=== PATIENT | female | born 1970 | race Caucasian/White ===

== ENCOUNTER → 2018-10-23 | Outpatient (CLI) | payer BC ==
--- NOTE | 2018-10-24 07:15 | NM ---
EXAMINATION TYPE: NM hepatobiliary w CCK DATE OF EXAM: 10/23/2018 COMPARISON: NONE HISTORY: Other specified diseases of the gallbladder. Abdominal pain, decreased appetite, reflux, becki sea, and alcohol usage. TECHNIQUE: After the intravenous administration of 4.28 mCi Tc 99m Mebrofenin hepatobiliary scintigra phy is performed. Immediate images post injection. FINDINGS: There is satisfactory initial accumulation of tracer by the liver. The gallbladder is visualized wit hin 8 minutes. The small bowel activity is noted within 40 minutes. At one hour CCK was administere d, patient was injected with 1.2 mcg of Kinevac, and gallbladder ejection fraction is calculated at 9 9 %, markedly elevated. Therefore there is no scintigraphic evidence of cystic or common bile duct o bstruction to suggest acute cholecystitis or gallbladder dyskinesia. IMPRESSION: 1. Markedly elevated gallbladder ejection fraction compatible with biliary hyperkinesia with ejection fraction of 99%. 2. No scintigraphic evidence of chronic nor acute cholecystitis.
== END | disposition home or self-care (01) ==
LOC: RADNMMAIN 15:05
PROVIDERS: ATTEND Surgery
DX: K82.8 Other specified diseases of gallbladder (principal)
CPT/HCPCS: 78227; A9537; J2805

== ENCOUNTER → 2018-10-30 | Outpatient (CLI) | payer BC ==
--- NOTE | 2018-10-31 08:48 | CT ---
EXAMINATION TYPE: CT abdomen pelvis w con DATE OF EXAM: 10/30/2018 COMPARISON: None INDICATION: ABDOMINAL PAIN X2 MONTHS DLP: 433.7 mGycm, Automated exposure control for dose reduction was used. CONTRAST: 100 mL of Isovue 300. Study performed with Oral Contrast TECHNIQUE: Axial images were obtained from above the diaphragm to the pubic rami in the axial plane a t 5 mm thick sections. Reconstructed images are reviewed on the computer in the coronal plane. FINDINGS: Limited CT sections are obtained the lung bases. The lung bases are clear. CT ABDOMEN: Liver: There is an ill-defined hypodensity within the mid right lobe liver measuring approximately 0. 5 since this could be a cyst among other etiologies, but is too small to classify. Consider follow-up ultrasound. Spleen: Normal Pancreas: Normal Adrenal glands: The adrenal glands are normal. Gallbladder: Normal Kidneys: No masses are evident. No hydronephrosis is present. No cysts are present. Delayed images were obtained through the kidneys, which remain unremarkable. Aorta: Normal Inferior vena cava: Normal. CT PELVIS: Loops of bowel distended with oral contrast within the upper abdomen are normal. The descending colon appears within normal limits with a few scattered diverticuli. There are scattered diverticuli withi n the sigmoid colon. The proximal sigmoid colon is diffusely thickened with some mild inflammatory ch heath adjacent. Contrast passes through this region. Findings are suggestive for mild to moderate dive rticulitis. No abscess formation is evident. No free air is evident. There are loops of bowel which a re incompletely distended or lack oral contrast limiting their evaluation. Appendix: Normal as visualized. Urinary bladder: Decompressed and cannot be well evaluated Genitourinary structures: Uterus is unremarkable. Adnexal regions are clear. No free fluid is within the pelvis. Osseous structures: No suspicious lytic or sclerotic lesions. IMPRESSIONS: 1. Findings suggestive for mild to moderate diverticulitis proximal and mid sigmoid colon. Follow-up is recommended. Evaluation for underlying neoplasm is recommended. 2. Small hypodensity within the right lobe liver is indeterminant on CT examination. Consider ultraso und abdomen with attention of the liver for additional evaluation. A [place] level critical message alert has been initiated for Riki Rangel MD via the [employer] Critical Results System on 10/31/2018 8:46 AM. This message alert has been sent to Riki Rangel MD via the preferences provided by the clinician for the receipt of Radiology Critical Findings. [facility] [place] [id number].
== END | disposition home or self-care (01) ==
LOC: RADCTMAIN 15:00
PROVIDERS: ATTEND Surgery
DX: K52.9 Noninfective gastroenteritis and colitis, unspecified (principal)
CPT/HCPCS: 74177; Q9967

== ENCOUNTER 2018-11-20 09:05 | Day surgery (SDC) | payer BC ==
[2018-11-16 12:03] VITALS: BMI 23.0
[~2018-11-20 09:05] MED LIST: DEXAMETHASONE SOD PHOSPHATE 10 MG/ML 1 ML VIAL IV ONE; HEPARIN SODIUM,PORCINE 5,000 UNIT/ML 1 ML VIAL SQ ONE; LACTATED RINGERS 1,000 ML IV SCH; LIDOCAINE 1% 20 ML VIAL (10MG/ML) FOR IV START INTRADERMA PRN; MIDAZOLAM 2 MG/2 ML VIAL IV PRN; fentaNYL (PF) 50 MCG/ML 2 ML AMP IV PRN
[2018-11-20] MEDS ORDERED: ONDANSETRON 4 MG/2 ML VIAL IVP ONE (09:35)
--- NOTE | 2018-11-20 09:44 | P.GSHP ---
History of Present Illness H&P Date: 11/20/18 Chief Complaint: Right upper quadrant, epigastric pain This a 40-year-old female who presents today for laparoscopically stenting. Patient recent HIDA scan showed abnormal ejection fraction consistent with chronic cholecystitis. Past Medical History Additional Past Medical History / Comment(s): diverticulitis History of Any Multi-Drug Resistant Organisms: None Reported Past Surgical History: Breast Surgery, Section, Hysterectomy Additional Past Surgical History / Comment(s): breast augmentation, lipoma removed from back of head Past Anesthesia/Blood Transfusion Reactions: Postoperative Nausea & Vomiting (PONV) Smoking Status: Current every day smoker - Past Family History Mother Family Medical History: Diabetes Mellitus, Deep Vein Thrombosis (DVT) Medications and Allergies Home Medications Medication Instructions Recorded Confirmed Type No Known Home Medications 11/16/18 11/20/18 History Allergies Allergy/AdvReac Type Severity Reaction Status Date / Time No Known Allergies Allergy Verified 11/20/18 09:24 Surgical - Exam Vital Signs Temp Pulse Resp BP Pulse Ox 98.0 F 82 16 134/76 96 11/20/18 09:23 11/20/18 09:23 11/20/18 09:23 11/20/18 09:23 11/20/18 09:23 - General well developed, well nourished, no distress - Eyes PERRL - ENT normal pinna - Neck no masses - Respiratory normal expansion - Cardiovascular Rhythm: regular - Abdomen Abdomen: soft, non tender Assessment and Plan Plan: Chronic cholecystitis. We'll perform laparoscopic cholecystectomy.
[2018-11-20] MEDS ORDERED: SUCCINYLCHOLINE CHLORIDE 100 MG/5 ML SYR IV ONE (10:01)
[2018-11-20] MEDS ORDERED: MIDAZOLAM 2 MG/2 ML VIAL ONE (10:01)
[2018-11-20] MEDS ORDERED: NEOSTIGMINE 1 MG/ML 10 ML VIAL ONE (10:01)
[2018-11-20] MEDS ORDERED: PROPOFOL 10 MG/ML 20 ML VIAL IV ONE (10:01)
[2018-11-20] MEDS ORDERED: GLYCOPYRROLATE 0.2 MG/ML 2 ML VIAL ONE (10:01)
[2018-11-20] MEDS ORDERED: fentaNYL (PF) 50 MCG/ML 2 ML AMP ONE (10:01)
[2018-11-20] MEDS ORDERED: ROCURONIUM BROMIDE 10 MG/ML 10 ML VIAL IV ONE (10:01)
[2018-11-20] MEDS ORDERED: KETOROLAC 30 MG/ML 1 ML VIAL ONE (10:01)
[2018-11-20] MEDS ORDERED: LIDOCAINE 1% INJ 10MG/ML (20 ML MDV) ONE (10:01)
[2018-11-20] MEDS ORDERED: LIDOCAINE 1%-EPI 1:100,000 20 ML VIAL SQ ONE (10:04)
--- NOTE | 2018-11-20 10:35 | P.OP ---
Date of Procedure: 11/20/18 Preoperative Diagnosis: Cholecystitis Postoperative Diagnosis: Cholecystitis Procedure(s) Performed: Laparoscopic cholecystectomy Anesthesia: GERALD Surgeon: Riki Rangel Estimated Blood Loss (ml): 5 Pathology: other (Gallbladder) Condition: stable Disposition: PACU Description of Procedure: The patient was placed on the operating table. The patient received a general endotracheal tube anesthesia. The patients abdomen was prepped and draped in the usual sterile fashion. Through an infraumbilical stab incision, the fascia of the anterior abdominal wall was grasped with a pair of Kochers and then the Veress needle was placed in the peritoneal cavity. Position of the Veress needle was confirmed with positive drop test. The abdomen was then insufflated. After adequate insufflation, the 10 mm trocar was placed in the peritoneal cavity. Following this the laparoscope was placed in the peritoneal cavity. The patient was placed in the head-up, right side up position and then a 5 mm trocar was placed in the right lateral and right subcostal position under direct visualization. A 8 mm trocar was placed in the epigastric position. The gallbladder was grasped in the fundus and infundibulum. Traction on the gallbladder was placed in the lateral and the cephalad positions. The triangle of Calot was visualized.. The cystic duct was bluntly dissected until the union of the cystic duct and common bile duct was seen. A critical view of safety was achieved. The cystic duct was then divided and sealed with the Harmonic scissors. A PDS Endoloop was then placed throughout the cystic duct stump. The cystic artery divided and sealed with the Harmonic scissors. The gallbladder was then removed from the liver bed using Harmonic scissors. The gallbladder was then extracted through the epigastric port site. Operative field was checked for any bleeding spots and Harmonic scissors was used to coagulate the liver bed. The abdomen was irrigated. The trocars were removed. The skin was closed using interrupted 3-0 Vicryl suture. Dermabond dressing were applied. The patient tolerated the procedure well.
[2018-11-20 10:45] VITALS: TEMP 97
[2018-11-20] MEDS: HYDROmorphone 1 MG/ML 1 ML SYRINGE IVP ONE ×2 (10:54→11:01)
[2018-11-20] MEDS ORDERED: LACTATED RINGERS 1,000 ML IV ONE (10:55)
[2018-11-20 11:42] VITALS: RESP 18
[2018-11-20 12:07] VITALS: BP 121/72; PULSE 83
== END 2018-11-20 12:20 | disposition home or self-care (01) ==
LOC: OR 09:05
PROVIDERS: ATTEND Surgery
DX: K81.1 Chronic cholecystitis (principal); F17.200 Nicotine dependence, unspecified, uncomplicated; Z83.3 Family history of diabetes mellitus
CPT/HCPCS: 88304; 47562; J2250; J1644; J1100; J2710; J0690; J2405; J2001; J3010; J1885; J1170; J0330; J2704

== ENCOUNTER 2018-12-20 09:46 | Day surgery (SDC) | payer BC ==
[2018-12-18 14:27] VITALS: BMI 22.5
[~2018-12-20 09:46] MED LIST changes: -DEXAMETHASONE SOD PHOSPHATE 10 MG/ML 1 ML VIAL IV ONE; -HEPARIN SODIUM,PORCINE 5,000 UNIT/ML 1 ML VIAL SQ ONE; -MIDAZOLAM 2 MG/2 ML VIAL IV PRN; -fentaNYL (PF) 50 MCG/ML 2 ML AMP IV PRN
[2018-12-20 10:29] VITALS: TEMP 98.5
[2018-12-20] MEDS ORDERED: PROPOFOL 10 MG/ML 20 ML VIAL IV ONE (10:50)
--- NOTE | 2018-12-20 11:07 | P.OP ---
Date of Procedure: 12/20/18 Preoperative Diagnosis: Diverticulitis Postoperative Diagnosis: External hemorrhoids. Diverticulosis Procedure(s) Performed: Colonoscopy Anesthesia: GERALD Surgeon: Riki Rangel Pathology: other (Sigmoid colon) Condition: stable Disposition: PACU Description of Procedure: The patient's placed on the endoscopy table in the lateral position. She received IV sedation. Digital rectal exam was performed which revealed external hemorrhoids. The flexible colonoscope was then placed patient anus and passed throughout the entire colon. The ileocecal valve was visualized. The cecum appeared normal. The ascending and transverse colon and a few scattered diverticula. In the descending colon a few diverticula received.; Was extensive diverticular changes there was evidence of some inflammatory changes mucosa. This was biopsied. With the cold forcep. The scope was then brought back the rectum this appeared normal. Scope withdrawn for patient.
[2018-12-20 11:35] VITALS: BP 128/87; PULSE 66; RESP 16
== END 2018-12-20 11:41 | disposition home or self-care (01) ==
LOC: ORWHC2ENDO 09:46
PROVIDERS: ATTEND Surgery
DX: K57.30 Diverticulosis of large intestine without perforation or abscess without bleeding (principal); K64.4 Residual hemorrhoidal skin tags; F17.210 Nicotine dependence, cigarettes, uncomplicated; K21.9 Gastro-esophageal reflux disease without esophagitis
CPT/HCPCS: 88305; 45378; J2704

== ENCOUNTER → 2019-02-07 | Outpatient (CLI) | payer BC ==
[2019-02-07 18:23] LABS: HCT 37.7 % (34.0-46.0); MCHC 34.5 g/dL (31.0-37.0); MCV 98.5 fL (80.0-100.0); Mean Platelet Volume 7.9; Platelet Count 231 k/uL (150-450); RBC 3.82 m/uL (3.80-5.40); RDW 12.3 % (11.5-15.5); WBC 8.8 k/uL (3.8-10.6)
[2019-02-07 18:38] LABS: Potassium 4.3 mmol/L (3.5-5.1)
== END | disposition home or self-care (01) ==
LOC: LABPAT 17:19
PROVIDERS: ATTEND Surgery
DX: Z01.812 Encounter for preprocedural laboratory examination (principal); K57.32 Diverticulitis of large intestine without perforation or abscess without bleeding
CPT/HCPCS: 80051; 85027

== ENCOUNTER 2019-02-09 07:40 | Inpatient (IN) | payer BC ==
[~2019-02-09 07:40] MED LIST changes: +DEXAMETHASONE SOD PHOSPHATE 10 MG/ML 1 ML VIAL IV ONE; +HEPARIN SODIUM,PORCINE 5,000 UNIT/ML 1 ML VIAL SQ ONE; +HYDROmorphone 0.5 MG/0.5 ML SYRINGE IVP PRN; -LACTATED RINGERS 1,000 ML IV SCH; +MIDAZOLAM 2 MG/2 ML VIAL IV PRN; +ONDANSETRON 4 MG/2 ML VIAL IVP ONE; +SCOPOLAMINE 1.5MG/72HR PATCH TRANSDERM ONE; +metroNIDAZOLE-NS PMX 500 MG in SALINE 1 100ML.BAG IVPB ONE
[2019-02-09] MEDS: LACTATED RINGERS 1,000 ML IV SCH (10:36)
[2019-02-09] MEDS ORDERED: MELOXICAM 7.5 MG TAB PO ONE (10:37)
[2019-02-09] MEDS ORDERED: ALVIMOPAN 12 MG CAPSULE PO ONE (10:37)
--- NOTE | 2019-02-09 11:00 | P.GSHP ---
History of Present Illness H&P Date: 02/09/19 Chief Complaint: Diverticulitis This a 40-year-old female with history of diverticula is. Patient presents today for low anterior resection. Patient aware the risks of surgery including colostomy, anastomotic leak, bleeding. Past Medical History Past Medical History: GERD/Reflux Additional Past Medical History / Comment(s): diverticulitis, small abdominal hernia, hx shingles History of Any Multi-Drug Resistant Organisms: None Reported Past Surgical History: Breast Surgery, Section, Cholecystectomy, Hysterectomy, Tonsillectomy Additional Past Surgical History / Comment(s): breast augmentation, lipoma removed from back of head, exploratory laparotomy Past Anesthesia/Blood Transfusion Reactions: Postoperative Nausea & Vomiting (PONV) Smoking Status: Current every day smoker - Past Family History Mother Family Medical History: Deep Vein Thrombosis (DVT) Medications and Allergies Home Medications Medication Instructions Recorded Confirmed Type No Known Home Medications 02/06/19 02/09/19 History Allergies Allergy/AdvReac Type Severity Reaction Status Date / Time No Known Allergies Allergy Verified 02/09/19 10:31 Surgical - Exam Vital Signs Temp Pulse Resp BP Pulse Ox 98.1 F 98 16 140/75 100 02/09/19 10:24 02/09/19 10:24 02/09/19 10:24 02/09/19 10:24 02/09/19 10:24 - General well developed, well nourished, no distress - Eyes PERRL - ENT normal pinna - Neck no masses - Respiratory normal expansion - Cardiovascular Rhythm: regular - Abdomen Abdomen: soft, non tender Assessment and Plan Assessment: History of diverticula is. Patient will undergo low anterior section.
[2019-02-09] MEDS ORDERED: MIDAZOLAM 2 MG/2 ML VIAL IVP ONE (11:05)
[2019-02-09] MEDS ORDERED: GLYCOPYRROLATE 0.2 MG/ML 2 ML VIAL ONE (11:10)
[2019-02-09] MEDS ORDERED: MIDAZOLAM 2 MG/2 ML VIAL ONE (11:10)
[2019-02-09] MEDS ORDERED: NEOSTIGMINE 1 MG/ML 10 ML VIAL ONE (11:10)
[2019-02-09] MEDS ORDERED: fentaNYL (PF) 50 MCG/ML 2 ML AMP ONE (11:10)
[2019-02-09] MEDS ORDERED: ESMOLOL 100 MG/10 ML VIAL ONE (11:10)
[2019-02-09] MEDS ORDERED: PROPOFOL 10 MG/ML 20 ML VIAL IV ONE (11:10)
[2019-02-09] MEDS ORDERED: HYDROmorphone (PF) 1 MG/ML ONE (11:10)
[2019-02-09] MEDS ORDERED: SUCCINYLCHOLINE CHLORIDE 100 MG/5 ML SYR IV ONE (11:10)
[2019-02-09] MEDS ORDERED: ROCURONIUM BROMIDE 10 MG/ML 10 ML VIAL IV ONE (11:10)
[2019-02-09] MEDS ORDERED: LIDOCAINE 1% INJ 10MG/ML (20 ML MDV) ONE (11:10)
[2019-02-09] MEDS ORDERED: NALOXONE 0.4 MG/ML 1 ML VIAL IV PRN (11:44)
[2019-02-09] MEDS ORDERED: ONDANSETRON 4 MG/2 ML VIAL IVP PRN (12:57)
[2019-02-09] MEDS ORDERED: BENZOCAINE/MENTHOL LOZENG 1 EACH LOZENGE MUCOUS MEM PRN (12:57)
[2019-02-09] MEDS ORDERED: KETOROLAC 30 MG/ML 1 ML VIAL IVP PRN (12:57)
[2019-02-09] MEDS ORDERED: METOCLOPRAMIDE 5 MG/ML 2 ML VIAL IVP PRN (12:57)
[2019-02-09] MEDS ORDERED: LACTATED RINGERS 1,000 ML IV ONE (13:06)
[2019-02-09] MEDS: ROPIVACAINE 250 MG, HYDROMORPHONE (PF) 5 MG in SODIUM CHLORIDE 0.9% 200 ML EPIDURAL PRN ×2 (13:15→14:13)
[2019-02-09] MEDS: D5-0.45% NACL WITH KCL 20MEQ/L 1,000 ML IV SCH (17:03)
[2019-02-09] MEDS: HEPARIN SODIUM,PORCINE 5,000 UNIT/ML 1 ML VIAL SQ SCH (17:03)
[2019-02-09] MEDS: ALVIMOPAN 12 MG CAPSULE PO SCH (20:51)
[2019-02-09] MEDS: FAMOTIDINE 20 MG/2 ML VIAL IV SCH (20:51)
[2019-02-09] MEDS: diphenhydrAMINE 50 MG/ML 1 ML VIAL IVP PRN (20:52)
[2019-02-10] MEDS: HEPARIN SODIUM,PORCINE 5,000 UNIT/ML 1 ML VIAL SQ SCH ×4 (00:17→22:20)
[2019-02-10] MEDS: D5-0.45% NACL WITH KCL 20MEQ/L 1,000 ML IV SCH ×4 (00:17→22:57)
[2019-02-10 07:46] LABS: Basophils # (A) 0.1 k/uL (0-0.2); Basophils % (A) 1 %; Eosinophils % (A) 0 %; HCT 35.7 % (34.0-46.0); HGB 11.6 gm/dL (11.4-16.0); Lymphocytes % (A) 7 %; MCH 33.1 pg (25.0-35.0); MCHC 32.6 g/dL (31.0-37.0); MCV 101.6 fL (80.0-100.0); Mean Platelet Volume 8.5; Monocytes # (A) 0.7 k/uL (0-1.0); Monocytes % (A) 5 %; Neutrophils # (A) 12.2 k/uL (1.3-7.7); Neutrophils % (A) 87 %; Platelet Count 225 k/uL (150-450); RBC 3.51 m/uL (3.80-5.40); RDW 12.4 % (11.5-15.5); WBC 14.1 k/uL (3.8-10.6)
[2019-02-10 07:58] LABS: African American GFR (CKD) >90 (>60 ml/min/1.73 sqM); Anion Gap 9 mmol/L; Blood Urea Nitrogen 5 mg/dL (7-17); Calcium 9.1 mg/dL (8.4-10.2); Carbon Dioxide 25 mmol/L (22-30); Chloride 104 mmol/L (98-107); Glucose 136 mg/dL (74-99); Non-African American GFR(CKD) >90 (>60 ml/min/1.73 sqM); Potassium 4.1 mmol/L (3.5-5.1); Sodium 138 mmol/L (137-145)
[2019-02-10] MEDS: LACTATED RINGERS 1,000 ML IV SCH (08:45)
[2019-02-10] MEDS: FAMOTIDINE 20 MG/2 ML VIAL IV SCH ×2 (08:49→22:20)
[2019-02-10] MEDS: ALVIMOPAN 12 MG CAPSULE PO SCH ×2 (08:49→22:20)
--- NOTE | 2019-02-10 10:40 | P.PN ---
Progress Note - Text Progress Note Date: 02/10/19 The patient's postoperative day 1 from low anterior resection for diverticulitis. She is doing quite well. She's had minimal pain. She actually has a little numbness in her left leg. On exam her vital signs are stable. Her abdomen soft. Incision site is clean dry intact Status post low anterior resection. Patient will remain on clear liquid diet. We will encourage ambulation and spirometer
[2019-02-10 12:32] VITALS: BMI 22.6
--- NOTE | 2019-02-10 16:21 | P.CONS ---
History of Present Illness - Reason for Consult Consult date: 02/10/19 Medical management - History of Present Illness This is a 48-year-old female patient of Dr. Flores admitted under the care of Dr. Rangel for low anterior resection. Patient has history of gastroesophageal reflux disease, diverticulitis. Patient is seen on postop day #1. Abdominal pain is currently controlled. She is on clear liquid diet and tolerating. Man catheter in place. She has been afebrile, blood pressure 149/88, heart rate 89, pulse ox 87% on room air. WBC 14.1, hemoglobin 11.6, platelet count 225. Electrolytes within normal limits, creatinine 0.56. Blood sugar 136. Patient denies history of diabetes. Review of Systems Constitutional: Denies chills, Denies fatigue, Denies fever Eyes: denies blurred vision, denies pain Ears, nose, mouth and throat: Denies headache, Denies sore throat Cardiovascular: Denies chest pain, Denies shortness of breath Respiratory: Denies cough Gastrointestinal: Reports abdominal pain, Reports constipation, Reports loss of appetite, Denies diarrhea, Denies nausea, Denies vomiting Genitourinary: Denies dysuria, Denies hematuria Musculoskeletal: Denies frequent falls, Denies gait dysfunction, Denies myalgias Integumentary: Denies pruritus, Denies rash Neurological: Denies numbness, Denies weakness Psychiatric: Denies anxiety, Denies depression Endocrine: Denies fatigue, Denies weight change Past Medical History Past Medical History: GERD/Reflux Additional Past Medical History / Comment(s): diverticulitis, small abdominal hernia, hx shingles History of Any Multi-Drug Resistant Organisms: None Reported Past Surgical History: Breast Surgery, Section, Cholecystectomy, Hysterectomy, Tonsillectomy Additional Past Surgical History / Comment(s): breast augmentation, lipoma removed from back of head, exploratory laparotomy Past Anesthesia/Blood Transfusion Reactions: Postoperative Nausea & Vomiting (PONV) Past Psychological History: Anxiety Smoking Status: Current every day smoker Past Alcohol Use History: Daily Additional Past Alcohol Use History / Comment(s): STARTED SMOKING AT AGE 15 SMOKES 1/2 PPD , up to 3 drinks daily Past Drug Use History: None Reported - Past Family History Mother Family Medical History: Diabetes Mellitus, Deep Vein Thrombosis (DVT) Additional Family Medical History / Comment(s): Mother is alive at age 72 with history of diabetes. Father Additional Family Medical History / Comment(s): Father at age 46 from cirrhosis of the liver. Patient has 1 sister with no major medical problems and one daughter with no major medical problems. Medications and Allergies Home Medications Medication Instructions Recorded Confirmed Type No Known Home Medications 02/06/19 02/09/19 History Allergies Allergy/AdvReac Type Severity Reaction Status Date / Time No Known Allergies Allergy Verified 02/09/19 10:31 Physical Exam Vitals: Vital Signs Temp Pulse Pulse Resp BP Pulse Ox 02/10/19 07:00 98.3 F 79 12 107/52 96 02/10/19 02:20 98.2 F 86 17 106/63 02/09/19 19:59 98.1 F 69 18 116/70 97 02/09/19 17:53 93 114/69 02/09/19 17:04 96 02/09/19 16:58 99 103/61 95 02/09/19 16:43 96 121/74 93 L 02/09/19 16:28 80 126/75 94 L 02/09/19 16:13 102 H 122/76 95 02/09/19 15:58 89 106/69 02/09/19 15:43 88 120/78 98 02/09/19 15:28 89 109/68 92 L 02/09/19 15:13 88 126/87 97 02/09/19 14:58 78 125/76 99 02/09/19 14:44 88 131/77 98 02/09/19 14:29 98.7 F 88 16 106/72 99 02/09/19 14:01 81 16 110/67 99 02/09/19 13:46 73 16 118/63 99 02/09/19 13:31 81 16 121/66 100 02/09/19 13:15 97.4 F L 89 16 127/80 98 02/09/19 11:15 99 14 114/75 99 Intake and Output 02/09/19 02/10/19 02/10/19 22:59 06:59 14:59 Intake Total 258.4 1250 Output Total 300 2050 Balance -41.6 -800 Intake: Intake, IV Titration 258.4 1250 Amount D5-0.45% NaCl with KCl 250 1250 20Meq/l 1,000 ml @ 125 mls/hr IV .Q8H [facility] Rx#: [id number] Ropivacaine 250 mg 8.4 Hydromorphone (Pf) 5 mg In Sodium Chloride 0.9% 200 ml @ Per Protocol EPIDURAL .Q0M PRN Rx#: [id number] Output: Urine 200 2050 Uretheral (Man) 200 600 Emesis 100 Other: Voiding Method Indwelling Catheter Indwelling Catheter # Bowel Movements 1 Gen: This is a 48-year-old female. Patient is resting in bed and appears comfortable and in no acute distress. HEENT: Head is atraumatic, normocephalic. Pupils equal, round. Sclerae is anicteric. NECK: Supple. No JVD. No lymphadenopathy. No thyromegaly. LUNGS: Clear to auscultation. No wheezes or rhonchi. No intercostal retractions. HEART: Regular rate and rhythm. No murmur. ABDOMEN: Soft. Bowel sounds are present. No masses. Generalized mild lower tenderness. EXTREMITIES: No pedal edema. No calf tenderness. NEUROLOGICAL: Patient is awake, alert and oriented x3. Cranial nerves 2 through 12 are grossly intact. Results CBC & Chem 7: 02/10/19 06:45 02/10/19 06:45 Labs: Abnormal Lab Results - Last 24 Hours (Table) 02/10/19 02/10/19 Range/Units 06:45 06:45 WBC 14.1 H (3.8-10.6) k/uL RBC 3.51 L (3.80-5.40) m/uL MCV 101.6 H (80.0-100.0) fL Neutrophils # 12.2 H (1.3-7.7) k/uL BUN 5 L (7-17) mg/dL Glucose 136 H (74-99) mg/dL Assessment and Plan Plan: 1. Acute diverticulitis status post low anterior resection, postop day #1. Patient is currently on clear liquid diet. Continue current pain management. Epidural in place. Patient is on Flagyl. Continue Entereg. 2. GI prophylaxis and gastroesophageal reflux disease, Pepcid IV. 3. Tobacco use and dependence. Patient declines nicotine patch. 4. Daily alcohol use. Patient history of seizure activity, DTs with withdrawal. 5. DVT prophylaxis. SCDs and MINDA hose. Discharge plan: home Impression and plan of care have been directed as dictated by the signing physician. Melvi Campbell nurse practitioner acting as scribe for signing physician.
[2019-02-10] MEDS: ROPIVACAINE 250 MG, HYDROMORPHONE (PF) 5 MG in SODIUM CHLORIDE 0.9% 200 ML EPIDURAL PRN (22:56)
[2019-02-10] MEDS: diphenhydrAMINE 50 MG/ML 1 ML VIAL IVP PRN (23:02)
[2019-02-11] MEDS: ALVIMOPAN 12 MG CAPSULE PO SCH ×2 (08:18→21:16)
[2019-02-11] MEDS: HEPARIN SODIUM,PORCINE 5,000 UNIT/ML 1 ML VIAL SQ SCH ×2 (08:18→15:30)
[2019-02-11] MEDS: FAMOTIDINE 20 MG/2 ML VIAL IV SCH ×2 (08:18→21:16)
[2019-02-11] MEDS: LACTATED RINGERS 1,000 ML IV SCH (08:19)
[2019-02-11] MEDS: D5-0.45% NACL WITH KCL 20MEQ/L 1,000 ML IV SCH ×2 (08:19→13:48)
--- NOTE | 2019-02-11 09:29 | P.PN ---
Progress Note - Text Progress Note Date: 02/11/19 48-year-old female status post low anterior resection postop day #2, epidural catheter day #3. Patient's doing well sitting up in chair. Current rate of 3 ML's an hour. Endorses mild pruritus which has been treated with Benadryl. She denies any numbness or tingling, any motor or sensory deficits. She denies any nausea, vomiting. She tolerating soft diet well. Using incentive spirometry. Patient is currently getting subcu heparin 5000 units 3 times a day. Plan is to continue epidural at current settings.
--- NOTE | 2019-02-11 09:31 | P.PN ---
Progress Note - Text Progress Note Date: 02/10/19 Follow up on 02/10/19 48-year-old female status post low anterior resection postop day #1 epidural catheter day #2. Overall patient is doing well epidurals at a rate of 6 ML's an hour. Denies any motor or sensory deficits. Surgical incision looks clean dry and intact, epidural catheter site is clean dry and intact. Denies any nausea or vomiting. Minimal ambulation. Hemodynamically stable. Plan is to continue epidural at current settings.
--- NOTE | 2019-02-11 10:05 | P.PN ---
Progress Note - Text Progress Note Date: 02/11/19 The patient is resting comfortably in her chair. She's had no significant flatus. On exam her vital signs are stable. Her abdomen soft. Incision site is clean dry intact. Her epidural is in place. Status post low anterior resection for diverticulitis. Patient will have her epidural catheter removed in the a.m. She will remain on clear liquids.
--- NOTE | 2019-02-11 11:49 | P.PN ---
Subjective Progress Note Date: 02/11/19 This is a 48-year-old female patient of Dr. Flores admitted under the care of Dr. Rangel for low anterior resection. Patient has history of gastroesophageal reflux disease, diverticulitis. Patient is seen on postop day #1. Abdominal pain is currently controlled. She is on clear liquid diet and tolerating. Man catheter in place. She has been afebrile, blood pressure 149/88, heart rate 89, pulse ox 87% on room air. WBC 14.1, hemoglobin 11.6, platelet count 225. Electrolytes within normal limits, creatinine 0.56. Blood sugar 136. Patient denies history of diabetes. 02/11: Epidural catheter for pain control and Man catheter remain in place which is anticipated these will be removed today. Patient is complaining of a lot of gas. She is on a clear liquid diet and tolerating Review of Systems Constitutional: Denies chills, Denies fatigue, Denies fever Eyes: denies blurred vision, denies pain Ears, nose, mouth and throat: Denies headache, Denies sore throat Cardiovascular: Denies chest pain, Denies shortness of breath Respiratory: Denies cough Gastrointestinal: Reports abdominal discomfort, Reports constipation, Reports loss of appetite, Denies diarrhea, Denies nausea, Denies vomiting Genitourinary: Denies dysuria, Denies hematuria Musculoskeletal: Denies frequent falls, Denies gait dysfunction, Denies myalgias Integumentary: Denies pruritus, Denies rash Neurological: Denies numbness, Denies weakness Psychiatric: Denies anxiety, Denies depression Endocrine: Denies fatigue, Denies weight change Objective - Vital Signs Vital signs: Vital Signs Temp 98.6 F 02/11/19 02:43 Pulse 77 02/11/19 02:43 Resp 16 02/11/19 02:43 BP 124/78 02/11/19 02:43 Pulse Ox 98 02/11/19 02:43 Intake & Output 02/10/19 02/11/19 02/11/19 18:59 06:59 18:59 Intake Total 240 159.333 Output Total 3000 3200 Balance -8620 -3040.667 Weight 57.9 kg Intake: Intake, IV Titration 159.333 Amount Ropivacaine 250 mg 159.333 Hydromorphone (Pf) 5 mg In Sodium Chloride 0.9% 200 ml @ Per Protocol EPIDURAL .Q0M PRN Rx#: [id number] Oral 240 Output: Urine 3000 3100 Emesis 100 Other: Voiding Method Indwelling Catheter Indwelling Catheter - Exam Gen: This is a 48-year-old female. Patient is resting in bed and appears to be in no acute distress. HEENT: Head is atraumatic, normocephalic. Pupils equal, round. Sclerae is anicte benito. NECK: Supple. No JVD. No lymphadenopathy. No thyromegaly. LUNGS: Clear to auscultation. No wheezes or rhonchi. No intercostal retractions. HEART: Regular rate and rhythm. No murmur. ABDOMEN: Soft. Bowel sounds are present. No masses. Generalized mild lower tenderness. EXTREMITIES: No pedal edema. No calf tenderness. NEUROLOGICAL: Patient is awake, alert and oriented x3. Cranial nerves 2 through 12 are grossly intact. - Labs CBC & Chem 7: 02/10/19 06:45 02/10/19 06:45 Labs: Abnormal Lab Results - Last 24 Hours (Table) 02/10/19 02/10/19 Range/Units 06:45 06:45 WBC 14.1 H (3.8-10.6) k/uL RBC 3.51 L (3.80-5.40) m/uL MCV 101.6 H (80.0-100.0) fL Neutrophils # 12.2 H (1.3-7.7) k/uL BUN 5 L (7-17) mg/dL Glucose 136 H (74-99) mg/dL Assessment and Plan Plan: 1. Acute diverticulitis status post low anterior resection, postop day #2. Patient is currently on clear liquid diet. Continue current pain management. Epidural and Man to be removed. Patient is on Flagyl. Continue Entereg. 2. GI prophylaxis and gastroesophageal reflux disease, Pepcid IV. 3. Tobacco use and dependence. Patient declines nicotine patch. 4. Daily alcohol use. Patient history of seizure activity, DTs with withdrawal. 5. DVT prophylaxis. SCDs and MINDA hose. Discharge plan: home Impression and plan of care have been directed as dictated by the signing physician. Melvi Campbell nurse practitioner acting as scribe for signing physi sam.
[2019-02-11] MEDS ORDERED: LORazepam 0.5 MG TAB PO PRN (14:31)
[2019-02-11] MEDS: diphenhydrAMINE 50 MG/ML 1 ML VIAL IVP PRN (15:27)
[2019-02-12] MEDS: HEPARIN SODIUM,PORCINE 5,000 UNIT/ML 1 ML VIAL SQ SCH ×4 (01:37→23:57)
[2019-02-12] MEDS: D5-0.45% NACL WITH KCL 20MEQ/L 1,000 ML IV SCH ×4 (01:37→23:58)
--- NOTE | 2019-02-12 07:05 | P.PN ---
Progress Note - Text Progress Note Date: 02/12/19 48-year-old female status post low anterior resection postop day #3 epidural catheter day #4. Patient doing well overall. VAS between a 0-4 out of 10 in severity depending on activity. He denies any motor or sensory weakness. Current rate is 4 ML's an hour. Denies any back pain. Epidural catheter site looks clean dry and intact. Plan is to remove epidural catheter today. Patient is on subcu heparin 5000 units 3 times a day. Has not received a dose this morning. I instructed covering nurse to remove epidural catheter and waited 4 hours until giving subcu heparin dose.
[2019-02-12] MEDS: LACTATED RINGERS 1,000 ML IV SCH (07:07)
[2019-02-12] MEDS: ALVIMOPAN 12 MG CAPSULE PO SCH ×2 (07:40→20:19)
[2019-02-12] MEDS: FAMOTIDINE 20 MG/2 ML VIAL IV SCH ×2 (07:40→20:19)
[2019-02-12] MEDS ORDERED: ACETAMINOPHEN TAB 325 MG TAB PO PRN (10:09)
--- NOTE | 2019-02-12 12:50 | P.PN ---
Subjective Progress Note Date: 02/12/19 CHIEF COMPLAINT: Diverticulitis HISTORY OF PRESENT ILLNESS: Patient is status post low anterior resection. POD #3. Patient examined this morning at the bedside. She denies abdominal pain. Epidural is infusing. Zayas intact with yellow urine. She reports passing f latus. Reports small liquid bowel movement this morning. PHYSICAL EXAM: VITAL SIGNS: Reviewed. GENERAL: Well-developed in no acute distress. HEENT: No sclera icterus. Extraocular movements grossly intact. Moist buccal mucosa. Head is atraumatic, normocephalic. ABDOMEN: Soft. Nondistended. Appropriate surgical tenderness. Dressing clean dry and intact. Positive bowel sounds. NEUROLOGIC: Alert and oriented. Cranial nerves II through XII grossly intact. ASSESSMENT: 1. History of diverticulitis, status post low anterior resection PLAN: 1. Discontinue epidural catheter. Patient states she is unable to tolerate [place]. Will order Tylenol and Ultram when necessary 2. Discontinue zayas catheter 3. Incentive spirometry 4. Increase activity as tolerated 5. Advance diet to full liquids 6. Anticipate discharged within the next 24-48 hours. Nurse practitioner note has been reviewed by physician. Signing provider agrees with the documented findings, assessment, and plan of care. Objective - Vital Signs Vital signs: Vital Signs Temp 98.2 F 02/12/19 07:00 Pulse 87 02/12/19 07:00 Resp 18 02/12/19 07:00 BP 118/75 02/12/19 07:00 Pulse Ox 97 02/12/19 07:00 Intake & Output 02/11/19 02/12/19 02/12/19 18:59 06:59 18:59 Intake Total 875 60.05 240 Output Total 3000 700 800 Balance -2125 -639.95 -560 Intake: Intake, IV Titration 875 60.05 Amount D5-0.45% NaCl with KCl 875 20Meq/l 1,000 ml @ 125 mls/hr IV .Q8H [facility] Rx#: [id number] Ropivacaine 250 mg 60.05 Hydromorphone (Pf) 5 mg In Sodium Chloride 0.9% 200 ml @ Per Protocol EPIDURAL .Q0M PRN Rx#: [id number] Oral 240 Output: Urine 3000 700 800 Other: Voiding Method Indwelling Catheter Indwelling Catheter Indwelling Catheter - Labs CBC & Chem 7: 02/10/19 06:45 02/10/19 06:45
[2019-02-12] MEDS: traMADol 50 MG TAB PO PRN ×2 (12:58→20:19)
--- NOTE | 2019-02-12 13:16 | P.PN ---
Subjective Progress Note Date: 02/12/19 This is a 48-year-old female patient of Dr. Flores admitted under the care of Dr. Rangel for low anterior resection. Patient has history of gastroesophageal reflux disease, diverticulitis. Patient is seen on postop day #1. Abdominal pain is currently controlled. She is on clear liquid diet and tolerating. Man catheter in place. She has been afebrile, blood pressure 149/88, heart rate 89, pulse ox 87% on room air. WBC 14.1, hemoglobin 11.6, platelet count 225. Electrolytes within normal limits, creatinine 0.56. Blood sugar 136. Patient denies history of diabetes. 02/11: Epidural catheter for pain control and Man catheter remain in place which is anticipated these will be removed today. Patient is complaining of a lot of gas. She is on a clear liquid diet and tolerating 02/12: Epidural catheter and Man catheter were removed yesterday. Patient states that she is passing gas today and she is feeling better. She denies any nausea or vomiting. She is to start a full liquid diet at lunchtime. She states she's had some liquid stools. Review of Systems Constitutional: Denies chills, Denies fatigue, Denies fever Eyes: denies blurred vision, denies pain Ears, nose, mouth and throat: Denies headache, Denies sore throat Cardiovascular: Denies chest pain, Denies shortness of breath Respiratory: Denies cough Gastrointestinal: Reports abdominal discomfort, denies constipation, Reports loss of appetite, Denies diarrhea, Denies nausea, Denies vomiting Genitourinary: Denies dysuria, Denies hematuria Musculoskeletal: Denies frequent falls, Denies gait dysfunction, Denies myalgias Integumentary: Denies pruritus, Denies rash Neurological: Denies numbness, Denies weakness Psychiatric: Denies anxiety, Denies depression Endocrine: Denies fatigue, Denies weight change Objective - Vital Signs Vital signs: Vital Signs Temp 98.2 F 02/12/19 07:00 Pulse 87 02/12/19 07:00 Resp 18 02/12/19 07:00 BP 118/75 02/12/19 07:00 Pulse Ox 97 02/12/19 07:00 Intake & Output 02/11/19 02/12/19 02/12/19 18:59 06:59 18:59 Intake Total 875 60.05 240 Output Total 3000 700 800 Balance -8275 -469.47 -351 Intake: Intake, IV Titration 875 60.05 Amount D5-0.45% NaCl with KCl 875 20Meq/l 1,000 ml @ 125 mls/hr IV .Q8H [facility] Rx#: [id number] Ropivacaine 250 mg 60.05 Hydromorphone (Pf) 5 mg In Sodium Chloride 0.9% 200 ml @ Per Protocol EPIDURAL .Q0M PRN Rx#: [id number] Oral 240 Output: Urine 3000 700 800 Other: Voiding Method Indwelling Catheter Indwelling Catheter Indwelling Catheter - Exam Gen: This is a 48-year-old female. Patient is resting in bed and appears to be in no acute distress. HEENT: Head is atraumatic, normocephalic. Pupils equal, round. Sclerae is anicteric. NECK: Supple. No JVD. No lymphadenopathy. No thyromegaly. LUNGS: Clear to auscultation. No wheezes or rhonchi. No intercostal retractions. HEART: Regular rate and rhythm. No murmur. ABDOMEN: Soft. Bowel sounds are present. No masses. Mild lower tenderness. EXTREMITIES: No pedal edema. No calf tenderness. NEUROLOGICAL: Patient is awake, alert and oriented x3. Cranial nerves 2 through 12 are grossly intact. - Labs CBC & Chem 7: 02/10/19 06:45 02/10/19 06:45 Assessment and Plan Plan: 1. Acute diverticulitis status post low anterior resection, postop day #2. Patient is currently on clear liquid diet. Continue current pain management. Epidural and Man to be removed. Patient is on Flagyl. Continue Entereg. 2. GI prophylaxis and gastroesophageal reflux disease, Pepcid IV. 3. Tobacco use and dependence. Patient declines nicotine patch. 4. Daily alcohol use. Patient history of seizure activity, DTs with wit hdrawal. 5. DVT prophylaxis. SCDs and MINDA hose. Discharge plan: home Impression and plan of care have been directed as dictated by the signing physician. Melvi Campbell nurse practitioner acting as scribe for signing physician.
[2019-02-13] MEDS: LACTATED RINGERS 1,000 ML IV SCH (01:46)
[2019-02-13] MEDS: traMADol 50 MG TAB PO PRN (03:21)
[2019-02-13 08:09] VITALS: BP 152/64; PULSE 76; RESP 17; TEMP 98.4
[2019-02-13] MEDS: FAMOTIDINE 20 MG/2 ML VIAL IV SCH (08:25)
[2019-02-13] MEDS: HEPARIN SODIUM,PORCINE 5,000 UNIT/ML 1 ML VIAL SQ SCH (08:25)
[2019-02-13] MEDS: D5-0.45% NACL WITH KCL 20MEQ/L 1,000 ML IV SCH (08:26)
[2019-02-13] MEDS: ALVIMOPAN 12 MG CAPSULE PO SCH ×2 (08:26→14:17)
[2019-02-13] MEDS: HYDROcodone/APAP 5-325MG 1 EACH TAB PO PRN ×2 (08:27→13:07)
[2019-02-13] MEDS ORDERED: D5-0.45% NACL WITH KCL 20MEQ/L 1,000 ML IV SCH (12:30)
[2019-02-13 13:07] LABS: HCT 38.7 % (34.0-46.0); HGB 13.2 gm/dL (11.4-16.0); MCH 33.9 pg (25.0-35.0); MCV 99.7 fL (80.0-100.0); Mean Platelet Volume 8.1; Platelet Count 304 k/uL (150-450); RBC 3.88 m/uL (3.80-5.40); RDW 12.5 % (11.5-15.5); WBC 9.6 k/uL (3.8-10.6)
--- NOTE | 2019-02-13 13:08 | P.DS ---
Providers Date of admission: 02/09/19 09:54 Expected date of discharge: 02/13/19 Attending physician: Riki Rangel Consults: 02/09/19 12:57 Consult Physician Routine Consulting Provider: Deondre Montiel Consult Reason/Comments: Medical management Do you want consulting provider notified?: Yes Primary care physician: [facility] [place] Course: 48-year-old female who underwent low anterior resection with Dr. Rangel. Patient is doing well postoperatively without any immediate complications. She is tolerating diet without nausea or vomiting. Pain is controlled on oral medications. Vital signs have been stable. She is stable for discharge home today. Please see EMR for further hospital course details. Discharge Diagnosis: 1. History of diverticulitis, status post low anterior resection Nurse practitioner note has been reviewed by physician. Signing provider agrees with the documented findings, assessment, and plan of care. Plan - Discharge Summary Discharge Rx Participant: Yes New Discharge Prescriptions: New Hydrocodone/Acetaminophen [[place] 5-325] 1 tab PO Q6HR PRN 3 Days #12 tab PRN Reason: Pain Discharge Medication List Hydrocodone/Acetaminophen [[place] 5-325] 1 tab PO Q6HR PRN 3 Days #12 tab 02/13/19 [Rx] Follow up Appointment(s)/Referral(s): Riki Rangel MD [STAFF PHYSICIAN] - 02/20/19 Activity/Diet/Wound Care/Special Instructions: No driving while taking [place] No lifting over 10 pounds You may shower. No soaking or tub baths Very light activity until you are reevaluated at your follow up appointment with your surgeon Diet as tolerated and You may remove dressing on abdomen on Tuesday and leave open to air.
[2019-02-13 13:55] LABS: ALT 14 U/L (9-52); AST 22 U/L (14-36); African American GFR (CKD) >90 (>60 ml/min/1.73 sqM); Albumin 4.4 g/dL (3.5-5.0); Alkaline Phosphatase 66 U/L (38-126); Anion Gap 10 mmol/L; Blood Urea Nitrogen 3 mg/dL (7-17); Calcium 10.5 mg/dL (8.4-10.2); Carbon Dioxide 27 mmol/L (22-30); Chloride 101 mmol/L (98-107); Glucose 140 mg/dL (74-99); Non-African American GFR(CKD) >90 (>60 ml/min/1.73 sqM); Sodium 138 mmol/L (137-145); Total Bilirubin 0.4 mg/dL (0.2-1.3); Total Protein 7.8 g/dL (6.3-8.2)
--- NOTE | 2019-02-13 14:37 | P.PN ---
Subjective Progress Note Date: 02/13/19 This is a 48-year-old female patient of Dr. Flores admitted under the care of Dr. Rangel for low anterior resection. Patient has history of gastroesophageal reflux disease, diverticulitis. Patient is seen on postop day #1. Abdominal pain is currently controlled. She is on clear liquid diet and tolerating. Man catheter in place. She has been afebrile, blood pressure 149/88, heart rate 89, pulse ox 87% on room air. WBC 14.1, hemoglobin 11.6, platelet count 225. Electrolytes within normal limits, creatinine 0.56. Blood sugar 136. Patient denies history of diabetes. 02/11: Epidural catheter for pain control and Man catheter remain in place which is anticipated these will be removed today. Patient is complaining of a lot of gas. She is on a clear liquid diet and tolerating 02/12: Epidural catheter and Man catheter were removed yesterday. Patient states that she is passing gas today and she is feeling better. She denies any nausea or vomiting. She is to start a full liquid diet at lunchtime. She states she's had some liquid stools. 02/13: The patient is currently tolerating diet without any nausea or vomiting. States she did not have a bowel movement today but did have one yesterday. She states she is ambulating in her room but not in the hallway today. is laying in her bed and she is sitting at the foot of the bed. IV fluids will be decreased. Patient is scheduled for discharge home today. No medication changes for discharge. Review of Systems Constitutional: Denies chills, Denies fatigue, Denies fever Ears, nose, mouth and throat: Denies headache, Denies sore throat Cardiovascular: Denies chest pain, Denies shortness of breath Respiratory: Denies cough Gastrointestinal: Reports abdominal discomfort, denies constipation, Reports loss of appetite, Denies diarrhea, Denies nausea, Denies vomiting Genitourinary: Denies dysuria, Denies hematuria Musculoskeletal: Denies frequent falls, Denies gait dysfunction, Denies myalgias Integumentary: Denies pruritus, Denies rash Neurological: Denies numbness, Denies weakness Psychiatric: Denies anxiety, Denies depression Endocrine: Denies fatigue, Denies weight change Objective - Vital Signs Vital signs: Vital Signs Temp 98.4 F 02/13/19 07:00 Pulse 76 02/13/19 07:00 Resp 17 02/13/19 07:00 BP 152/64 02/13/19 07:00 Pulse Ox 93 L 02/13/19 07:00 Intake & Output 02/12/19 02/13/19 02/13/19 18:59 06:59 18:59 Intake Total 240 865 240 Output Total 800 Balance -560 865 240 Intake: Intake, IV Titration 625 Amount D5-0.45% NaCl with KCl 625 20Meq/l 1,000 ml @ 125 mls/hr IV .Q8H [facility] Rx#: [id number] Oral 240 240 240 Output: Urine 800 Other: Voiding Method Indwelling Catheter # Voids 3 - Exam Gen: This is a 48-year-old female. Patient is resting on the edge of the bed and appears to be in no acute distress. HEENT: Head is atraumatic, normocephalic. Pupils equal, round. Sclerae is anicteric. NECK: Supple. No JVD. No lymphadenopathy. No thyromegaly. LUNGS: Clear to auscultation. No wheezes or rhonchi. No intercostal retractions. HEART: Regular rate and rhythm. No murmur. ABDOMEN: Soft. Bowel sounds are present. No masses. Mild lower tenderness. EXTREMITIES: No pedal edema. No calf tenderness. NEUROLOGICAL: Patient is awake, alert and oriented x3. Cranial nerves 2 through 12 are grossly intact. - Labs CBC & Chem 7: 02/13/19 12:50 02/13/19 12:50 Assessment and Plan Plan: 1. Acute diverticulitis status post low anterior resection, postop day #4. Patient is currently on clear liquid diet. Continue current pain management. Epidural and Man to be removed. Patient is on Flagyl. Continue Entereg. 2. GI prophylaxis and gastroesophageal reflux disease, Pepcid IV. 3. Tobacco use and dependence. Patient declines nicotine patch. 4. Daily alcohol use. Patient history of seizure activity, DTs with withdrawal. 5. DVT prophylaxis. SCDs and MINDA hose. Discharge plan: home today Impression and plan of care have been directed as dictated by the signing physician. Melvi Campbell nurse practitioner acting as scribe for signing physician.
--- NOTE | 2019-03-12 17:32 | P.OP ---
Date of Procedure: 02/09/19 Preoperative Diagnosis: Diverticulitis Postoperative Diagnosis: Diverticulitis Procedure(s) Performed: low anterior resection Anesthesia: GERALD Surgeon: Riki Rangel Estimated Blood Loss (ml): 10 Pathology: other (Sigmoid colon) Condition: stable Disposition: PACU Description of Procedure: DESCRIPTION OF PROCEDURE: The patient was placed on the operating table in the supine position. Patient received a general anesthesia. Patient was then placed in the dorsal lithotomy position. The patients abdomen was prepped and draped in the usual sterile fashion. Through a low midline incision, the abdomen was entered. The [place] retractor was placed in the wound. The stomach appeared normal. The small bowel appeared normal. The liver appeared normal. The right colon and transverse colon appeared normal. On the left colon, there was an extensive diverticulosis noted. The sigmoid colon was then mobilized by dividing the white line of [place] with electrocautery. At this point, the proximal sigmoid colon was transected with a GI stapler after a window had been made in the mesentery. The distal sigmoid colon was then dissected. Mesentery was taken down between Molly clamps and ligated with #0 silk ties. At a point beyond the lesion, the bowel was then transected with a Proximate stapler. This was then removed. The splenic flexure was then taken down in order to provide adequate lengthening of the sigmoid colon. At t his point, the auto purse-string suture device was placed across the proximal colon and fired. The colon was then opened. The 29 mm EEA anvil was then placed into the colon and then the purse-string was secured. The EEA stapler device was then placed in the patients anus and passed into the rectum. The nail for the EEA was then brought out through the distal rectum and then attached to the anvil. The EEA stapler device was then fired. The anastomosis was inspected. There were 2 good donuts of tissue removed from the EEA stapler. The anastomosis was then tested under water and there was no air leak seen. At this point the abdomen was then irrigated. There was no bleeding seen. The fascia was then closed with double stranded #1 PDS. The skin was closed with cali. The patient tolerated the procedure well.
== END 2019-02-13 14:53 | disposition home or self-care (01) | DRG 331 ==
LOC: 2ORMAIN 09:54 → 4SSUR 13:32
PROVIDERS: ADMIT Surgery; ATTEND Surgery
PROC: 0DBP0ZZ Excision of Rectum, Open Approach (ICD-10-PCS; 2019-02-09)
PROC: 0DBN0ZZ Excision of Sigmoid Colon, Open Approach (ICD-10-PCS; principal; 2019-02-09 11:20)
DX: K57.20 Diverticulitis of large intestine with perforation and abscess without bleeding (principal); F17.210 Nicotine dependence, cigarettes, uncomplicated; L29.9 Pruritus, unspecified; Z83.3 Family history of diabetes mellitus; Z90.710 Acquired absence of both cervix and uterus; K59.00 Constipation, unspecified; K21.9 Gastro-esophageal reflux disease without esophagitis; F41.9 Anxiety disorder, unspecified; Z83.2 Family history of diseases of the blood and blood-forming organs and certain disorders involving the immune mechanism
CPT/HCPCS: 36415; 80048; 80053; 85025; 85027; 86850; 86900; 86901; 88307

== ENCOUNTER 2021-04-22 14:14 | Emergency (ER) | payer BC, OTHER ==
[2021-04-22 14:31] VITALS: TEMP 98
[2021-04-22 15:16] VITALS: RESP 16
--- NOTE | 2021-04-22 15:55 | ED ---
General Adult HPI - General Chief complaint: Allergic Reaction Stated complaint: lip swelling, swollen glands Time Seen by Provider: 04/22/21 14:30 Source: patient, RN notes reviewed, old records reviewed Mode of arrival: ambulatory Limitations: no limitations - History of Present Illness Initial comments: This is a 50-year-old female who presents emergency Department complaining of Lips for a week and three-day history of lymphadenopathy bilateral submandibular area. Patient states those lymph nodes of now become tender. Patient denies any fever chills. Patient states she has slight soreness in the back of her throat. Patient denies any difficulty breathing shortest breath or chest pain. Patient denies any abdominal pain patient denies nausea vomiting diarrhea. - Related Data Previous Rx's Medication Instructions Recorded Hydrocodone/Acetaminophen [[place] 1 tab PO Q6HR PRN 3 Days #12 tab 02/13/19 5-325] Cephalexin [Keflex] 500 mg PO Q6HR #28 cap 04/22/21 predniSONE [Deltasone] 20 mg PO DAILY #4 tab 04/22/21 Allergies Allergy/AdvReac Type Severity Reaction Status Date / Time No Known Allergies Allergy Verified 04/22/21 14:31 Review of Systems ROS Statement: Those systems with pertinent positive or pertinent negative responses have been documented in the HPI. ROS Other: All systems not noted in ROS Statement are negative. Past Medical History Past Medical History: GERD/Reflux Additional Past Medical History / Comment(s): diverticulitis, small abdominal hernia, hx shingles History of Any Multi-Drug Resistant Organisms: None Reported Past Surgical History: Breast Surgery, Section, Cholecystectomy, Hysterectomy, Tonsillectomy Additional Past Surgical History / Comment(s): breast augmentation, lipoma removed from back of head, exploratory laparotomy Past Anesthesia/Blood Transfusion Reactions: Postoperative Nausea & Vomiting (PONV) Past Psychological History: Anxiety Smoking Status: Current every day smoker Past Alcohol Use History: Daily Past Drug Use History: None Reported - Past Family History Mother Family Medical History: Diabetes Mellitus, Deep Vein Thrombosis (DVT) Additional Family Medical History / Comment(s): Mother is alive at age 72 with history of diabetes. Father Additional Family Medical History / Comment(s): Father at age 46 from cirrhosis of the liver. Patient has 1 sister with no major medical problems and one daughter with no major medical problems. General Exam - General Exam Comments Initial Comments: GENERAL: Patient is well-developed and well-nourished. Patient is nontoxic and well- hydrated and is in mild distress. ENT: Submandibular lymphadenopathy EYES: The sclera were anicteric and conjunctiva were pink and moist. Extraocular movements were intact and pupils were equal round and reactive to light. Eyelids were unremarkable. PULMONARY: Unlabored respirations. Good breath sounds bilaterally. No audible rales rhonchi or wheezing was noted. CARDIOVASCULAR: There is a regular rate and rhythm without any murmurs gallops or rubs. SKIN: Skin is clear with no lesions or rashes and otherwise unremarkable. NEUROLOGIC: Patient is alert and oriented x3. Cranial nerves II through XII are grossly intact. Motor and sensory are also intact. Normal speech, volume and content. Symmetrical smile. MUSCULOSKELETAL: Normal extremities with adequate strength and full range of motion. LYMPHATICS: Patient has large tender submandibular lymphadenopathy PSYCHIATRIC: Normal psychiatric evaluation. Limitations: no limitations Course Vital Signs 04/22/21 04/22/21 14:26 15:13 Temperature 98.0 F Pulse Rate 110 H Respiratory 18 16 Rate Blood Pressure 139/87 O2 Sat by Pulse 98 Oximetry Medical Decision Making - Lab Data Lab Results 04/22/21 Range/Units 15:29 Group A Strep Rapid Negative (Negative) Disposition Clinical Impression: Lymphadenitis, Swelling of both lips Disposition: HOME SELF-CARE Condition: Good Instructions (If sedation given, give patient instructions): Adenitis (ED) Prescriptions: predniSONE [Deltasone] 20 mg PO DAILY #4 tab Cephalexin [Keflex] 500 mg PO Q6HR #28 cap Is patient prescribed a controlled substance at d/c from ED?: No Referrals: Efrain Flores DO [Primary Care Provider] - 1-2 days Time of Disposition: 15:52
[2021-04-22 16:05] VITALS: BP 131/77; PULSE 87
== END 2021-04-22 16:05 | disposition home or self-care (01) ==
LOC: EC 14:14
DX: R59.0 Localized enlarged lymph nodes (principal); K13.0 Diseases of lips; K21.9 Gastro-esophageal reflux disease without esophagitis; F41.9 Anxiety disorder, unspecified; F17.200 Nicotine dependence, unspecified, uncomplicated; Z90.49 Acquired absence of other specified parts of digestive tract; Z90.710 Acquired absence of both cervix and uterus
CPT/HCPCS: 87081; 87430; 99283

== ENCOUNTER 2021-05-01 14:23 | Emergency (ER) | payer OTHER ==
[2021-05-01 15:25] LABS: Basophils % (A) 1 %; Eosinophils # (A) 0.1 k/uL (0-0.7); Eosinophils % (A) 2 %; HCT 41.5 % (34.0-46.0); HGB 13.9 gm/dL (11.4-16.0); Lymphocytes # (A) 1.4 k/uL (1.0-4.8); Lymphocytes % (A) 18 %; MCH 35.4 pg (25.0-35.0); MCHC 33.5 g/dL (31.0-37.0); MCV 105.6 fL (80.0-100.0); Macrocytosis Moderate; Mean Platelet Volume 8.4; Monocytes # (A) 0.4 k/uL (0-1.0); Monocytes % (A) 5 %; Neutrophils # (A) 5.9 k/uL (1.3-7.7); Neutrophils % (A) 74 %; Platelet Count 213 k/uL (150-450); RBC 3.93 m/uL (3.80-5.40); RDW 13.3 % (11.5-15.5)
--- NOTE | 2021-05-01 15:27 | ED ---
General Adult HPI - General Chief complaint: Dental/Oral Stated complaint: Oral Issues Time Seen by Provider: 05/01/21 14:34 Source: patient, RN notes reviewed Mode of arrival: ambulatory Limitations: no limitations - History of Present Illness Initial comments: 50-year-old female presents to the emergency department for evaluation of redness and swelling around the lips, onset 10 days prior to arrival. Patient states at the onset of symptoms she also had swollen lymph nodes and a mild sore throat. Reports she was treated with Keflex and prednisone at that time. Reports modest improvement in lymph node swelling and resolution of sore throat, but now has pain and redness around her lips and mouth. She does have one small lesion along the lower lip border. Complains of fatigue. Denies fever, chills, sore throat, difficulty swallowing, dental pain, difficulty breathing, nausea, or vomiting; no cosmetic injections. - Related Data Previous Rx's Medication Instructions Recorded Acyclovir 400 mg PO 5XD 5 Days #25 tablet 05/01/21 Allergies Allergy/AdvReac Type Severity Reaction Status Date / Time No Known Allergies Allergy Verified 05/01/21 16:42 Review of Systems ROS Statement: Those systems with pertinent positive or pertinent negative responses have been documented in the HPI. ROS Other: All systems not noted in ROS Statement are negative. Past Medical History Past Medical History: GERD/Reflux Additional Past Medical History / Comment(s): diverticulitis, small abdominal hernia, hx shingles History of Any Multi-Drug Resistant Organisms: None Reported Past Surgical History: Breast Surgery, Section, Cholecystectomy, Hysterectomy, Tonsillectomy Additional Past Surgical History / Comment(s): breast augmentation, lipoma removed from back of head, exploratory laparotomy Past Anesthesia/Blood Transfusion Reactions: Postoperative Nausea & Vomiting (PONV) Past Psychological History: Anxiety Smoking Status: Current every day smoker Past Alcohol Use History: Daily Past Drug Use History: None Reported - Past Family History Mother Family Medical History: Diabetes Mellitus, Deep Vein Thrombosis (DVT) Additional Family Medical History / Comment(s): Mother is alive at age 72 with history of diabetes. Father Additional Family Medical History / Comment(s): Father at age 46 from cirrhosis of the liver. Patient has 1 sister with no major medical problems and one daughter with no major medical problems. General Exam Limitations: no limitations (Well-developed, well-nourished female in no acute distress. Initial temperature 98.3, pulse 95, respirations 18, blood pressure 161/94, pulse ox 98% on room air.) General appearance: alert, in no apparent distress ENT exam: Present: normal oropharynx, TM's normal bilaterally Expanded Mouth exam: Present: other (Diffuse circumoral/perioral erythema with angular chelitis, superficial fissures, and one small herpetic appearing lesion on the right lower lip). Absent: normal external inspection Throat exam: normal inspection. negative: tonsillar erythema, tonsillomegaly, tonsillar exudate Neck exam: Present: normal inspection. Absent: lymphadenopathy Respiratory exam: Present: normal lung sounds bilaterally. Absent: respiratory distress, wheezes, rales, rhonchi, stridor Cardiovascular Exam: Present: regular rate, normal rhythm, normal heart sounds. Absent: systolic murmur, diastolic murmur, rubs, gallop, clicks Neurological exam: Present: alert, oriented X3, CN II-XII intact Psychiatric exam: Present: normal affect, normal mood Skin exam: Present: warm, dry, intact, normal color. Absent: rash Course Vital Signs 05/01/21 05/01/21 14:30 18:10 Temperature 98.3 F 98.1 F Pulse Rate 95 87 Respiratory 18 20 Rate Blood Pressure 161/94 158/78 O2 Sat by Pulse 98 98 Oximetry Medical Decision Making - Medical Decision Making 50-year-old female presents to the emergency department for evaluation of perioral erythema and herpetic lesion. Upon exam, patient is well-appearing and in no acute distress. She does complain of fatigue and malaise. Was recently treated for pharyngitis and lymphadenitis with an oral steroid and antibiotic. Physical exam reveals non-erythematous pharynx with no tonsillar hypertrophy or exudate. No lymphadenopathy is appreciated. Patient does have circumoral erythema with superficial fissures and angular chelitis. In addition, she also has one small herpetic lesion on the right lower lip. Laboratory studies were obtained due to patient's complaints of persistent fatigue. She does appear mildly dehydrated. Results were discussed with the patient and upon further dialogue, patient reports increased stress and anxiety preceding onset of symptoms. Discussed the likelihood of the lesion being due to herpes simplex virus which is often reactivated during times of stress therefore patient was prescribed acyclovir. Circumoral erythema appears to be dana to dermatitis in nature. Discussed minimizing irritants and use of cosmetics and suggested use of topical emollient. No topical steroid will be prescribed due to concerns with application on face. She is instructed to follow up with her PCP and dermatology. Return parameters were discussed in detail. Patient verbalizes understanding and agrees with this plan. - Lab Data Result diagrams: 05/01/21 15:14 05/01/21 15:14 Lab Results 05/01/21 05/01/21 05/01/21 Range/Units 15:14 15:14 15:14 WBC 8.0 (3.8-10.6) k/uL RBC 3.93 (3.80-5.40) m/uL Hgb 13.9 (11.4-16.0) gm/dL Hct 41.5 (34.0-46.0) % MCV 105.6 H (80.0-100.0) fL MCH 35.4 H (25.0-35.0) pg MCHC 33.5 (31.0-37.0) g/dL RDW 13.3 (11.5-15.5) % Plt Count 213 (150-450) k/uL MPV 8.4 Neutrophils % 74 % Lymphocytes % 18 % Monocytes % 5 % Eosinophils % 2 % Basophils % 1 % Neutrophils # 5.9 (1.3-7.7) k/uL Lymphocytes # 1.4 (1.0-4.8) k/uL Monocytes # 0.4 (0-1.0) k/uL Eosinophils # 0.1 (0-0.7) k/uL Basophils # 0.0 (0-0.2) k/uL Macrocytosis Moderate Sodium 136 L (137-145) mmol/L Potassium 4.1 (3.5-5.1) mmol/L Chloride 108 H (98-107) mmol/L Carbon Dioxide 16 L (22-30) mmol/L Anion Gap 12 mmol/L BUN 11 (7-17) mg/dL Creatinine 0.55 (0.52-1.04) mg/dL Est GFR (CKD-EPI)AfAm >90 (>60 ml/min/1.73 sqM) Est GFR (CKD-EPI)NonAf >90 (>60 ml/min/1.73 sqM) Glucose 125 H (74-99) mg/dL Calcium 9.9 (8.4-10.2) mg/dL Total Bilirubin 0.6 (0.2-1.3) mg/dL AST 43 H (14-36) U/L ALT 23 (4-34) U/L Alkaline Phosphatase 130 H (38-126) U/L Total Protein 8.4 H (6.3-8.2) g/dL Albumin 4.7 (3.5-5.0) g/dL Heterophile Antibody Negative (Negative) Disposition Clinical Impression: Perioral dermatitis, Oral herpes simplex infection Disposition: HOME SELF-CARE Condition: Stable Instructions (If sedation given, give patient instructions): Contact Dermatitis (ED), Oral Herpes Simplex Virus Infections (ED) Additional Instructions: Take antiviral as directed. May take Tylenol or Motrin as needed for discomfort. Avoid topical irritants and cosmetics. Follow-up with Dr. Flores or dermatology for a recheck next week. Return to the emergency department with any new, worsening, or concerning symptoms. Prescriptions: Acyclovir 400 mg PO 5XD 5 Days #25 tablet Is patient prescribed a controlled substance at d/c from ED?: No Referrals: Efrain Flores DO [Primary Care Provider] - 1-2 days Time of Disposition: 17:55
[2021-05-01 15:37] LABS: ALT 23 U/L (4-34); AST 43 U/L (14-36); African American GFR (CKD) >90 (>60 ml/min/1.73 sqM); Albumin 4.7 g/dL (3.5-5.0); Alkaline Phosphatase 130 U/L (38-126); Anion Gap 12 mmol/L; Blood Urea Nitrogen 11 mg/dL (7-17); Calcium 9.9 mg/dL (8.4-10.2); Carbon Dioxide 16 mmol/L (22-30); Chloride 108 mmol/L (98-107); Glucose 125 mg/dL (74-99); Non-African American GFR(CKD) >90 (>60 ml/min/1.73 sqM); Potassium 4.1 mmol/L (3.5-5.1); Sodium 136 mmol/L (137-145); Total Bilirubin 0.6 mg/dL (0.2-1.3); Total Protein 8.4 g/dL (6.3-8.2)
[2021-05-01 18:16] VITALS: BP 158/78; PULSE 87; RESP 20; TEMP 98.1
== END 2021-05-01 18:16 | disposition home or self-care (01) ==
LOC: EC 14:23
DX: L71.0 Perioral dermatitis (principal); B00.2 Herpesviral gingivostomatitis and pharyngotonsillitis; K21.9 Gastro-esophageal reflux disease without esophagitis; F41.9 Anxiety disorder, unspecified; F17.200 Nicotine dependence, unspecified, uncomplicated; Z90.49 Acquired absence of other specified parts of digestive tract; Z90.710 Acquired absence of both cervix and uterus
CPT/HCPCS: 36415; 80053; 85025; 86308; 99283

== ENCOUNTER → 2021-10-16 | Outpatient (CLI) | payer OTHER ==
--- NOTE | 2021-10-16 15:18 | XR ---
EXAMINATION TYPE: XR chest 2V DATE OF EXAM: 10/16/2021 COMPARISON: NONE HISTORY: Shortness of breath TECHNIQUE: Frontal and lateral views of the chest are obtained. FINDINGS: Scattered senescent parenchymal changes noted. Hyperinflation compatible with COPD. No evidence for infiltrate. No evidence for atelectasis. Heart size is stable. Mediastinal structures are stable and grossly unremarkable. No evidence for hilar prominence. Degenerative changes dorsal spine. IMPRESSION: 1. No evidence for acute pulmonary disease.
--- NOTE | 2021-10-16 15:19 | XR ---
EXAMINATION TYPE: XR lumbar spine 2 or 3V DATE OF EXAM: 10/16/2021 CLINICAL HISTORY: pain TECHNIQUE: Three views of the lumbar spine are submitted. COMPARISON: None. FINDINGS: There are 5 lumbar type vertebral bodies identified. The lumbar spine shows satisfactory alignment w ithout evidence of acute fracture or dislocation. Vertebral body heights are within normal limits. Mild multilevel degenerative disc disease and mild ventral spondylosis. Facet joint arthropathy. The overlying soft tissue appears unremarkable. IMPRESSION: No acute fracture or dislocation is seen in the lumbar spine. ICD 10 NO FRACTURE, INITIAL EVALUATION
== END | disposition home or self-care (01) ==
LOC: RADXRMAIN 14:53
PROVIDERS: ATTEND Family Medicine
DX: M47.816 Spondylosis without myelopathy or radiculopathy, lumbar region (principal); M51.26 Other intervertebral disc displacement, lumbar region
CPT/HCPCS: 71046; 72100

== ENCOUNTER → 2022-01-12 | Outpatient (CLI) | payer OTHER ==
[2022-01-12 18:23] LABS: African American GFR (CKD) 123.1 (60.0-200.0); Albumin 4.9 g/dL (3.8-4.9); Albumin/Globulin Ratio 1.58 (1.60-3.17); Anion Gap 14.5 mmol/L (10.00-18.00); BUN/Creat Ratio 17.69 Ratio (12.00-20.00); Blood Urea Nitrogen 10.4 mg/dL (9.0-27.0); Carbon Dioxide 22.7 mmol/L (20.0-27.5); Globulin 3.1 g/dL (1.6-3.3); HDL Cholesterol 64.1 mg/dL (40.00-60.00); Non-African American GFR(CKD) 106.2 (60.0-200.0); Potassium 4.4 mmol/L (3.5-5.5); Total Bilirubin 0.5 mg/dL (0.30-1.20); Total Protein 7.9 g/dL (6.2-8.2)
[2022-01-12 18:37] LABS: Chol/HDL Ratio 3.76 Ratio
== END | disposition home or self-care (01) ==
LOC: LABWHC1 13:34
PROVIDERS: ATTEND Family Medicine
DX: K57.90 Diverticulosis of intestine, part unspecified, without perforation or abscess without bleeding (principal); R53.83 Other fatigue; R07.9 Chest pain, unspecified
CPT/HCPCS: 36415; 80053; 80061; 81241; 83721

== ENCOUNTER → 2022-02-16 | Outpatient (CLI) | payer OTHER ==
--- NOTE | 2022-02-16 09:51 | CA ---
Exercise Stress Test Report Name: Michelle Mcneal Exam Date: 02/16/2022 09:15 Exam Location: [facility] Stress Ht (in): 63 Wt (lb): 135 BSA: 1.64 Ordering Phys: Efrain Flores DO Referring Phys: Efrain Flores DO Technologist: Efrain Dejesus Age: 51 Gender: F : 1970 Procedure CPT: Indications: R07.89 Atypical Chest Pain ICD-10 Codes: Patient History: Medications: ATORVASTATIN Meds past 24 hrs: Pretest Chest Pain: STRESS TEST Jeff Protocol Exercise Duration (min:sec): 09:[address] Depressions (mm): Angina Score: Todd Score: Resting HR (bpm): 92 Peak HR (bpm): 156 Resting BP (mmHg): 129 / 88 Peak BP (mmHg): 178 / 89 MPHR: 169 Target HR: 144 % MPHR: 92 METS: 10.9 Total Dose: Peak Dose: Atropine: Double Product: 88396 BP Response: Stress Termination: Reached target heart rate Stress Symptoms: NO SYMPTOMS Stress Summary: ECG ANALYSIS Resting ECG: Stress ECG: CONCLUSIONS Patient underwent exercise stress EKG with a Jeff protocol treadmill stress test. Patient exercised into Stage 3 for a total of 9 minutes and 29 seconds reaching a total of 10.9 METS. Patient's maximum heart rate was 156 which represented 92 % age- predicted maximum heart rate. Stress EKG findings: At baseline patient's EKG showed normal sinus rhythm, normal axis, no significant ST or T wave abnormalities. At peak exercise, EKG showed no significant change from baseline. Conclusions: 1. Normal EKG response to exercise without evidence of inducible ischemia. 2. Good exercise capacity. Dr. Matt Porter DO (Electronically Signed) Final Date: 16 February 2022 09:50
== END | disposition home or self-care (01) ==
LOC: RADNMMAIN 08:36
PROVIDERS: ATTEND Family Medicine
DX: R07.89 Other chest pain (principal)
CPT/HCPCS: 93017

== ENCOUNTER → 2022-03-09 | Outpatient (CLI) | payer OTHER ==
--- NOTE | 2022-03-09 14:14 | CT ---
EXAMINATION TYPE: CT abdomen pelvis w con DATE OF EXAM: 03/09/2022 HISTORY: Diverticulitis. Hx preforated intestine removal, darinel. CT DLP: 1029mGycm Automated Exposure Control for Dose Reduction was Utilized. CONTRAST: CT scan of the abdomen and pelvis is performed with oral and with IV Contrast, patient injected with 70 mL of Isovue 300. COMPARISON: CT abdomen and pelvis October 30, 2018 FINDINGS: LUNG BASES: No significant abnormality is appreciated. LIVER/GB: There are 2-3 subcentimeter low dense lesions scattered throughout the liver too small to f urther characterize but presumably benign. Gallbladder is now surgically absent. PANCREAS: No significant abnormality is seen. SPLEEN: No significant abnormality is seen. ADRENALS: No significant abnormality is seen. KIDNEYS: No significant abnormality is seen. BOWEL: Oral contrast reaches level of the proximal left colon. No suspicious small or large bowel dil atation. Surgical sutures in the sigmoid colon left pelvis axial image 61 are now present. Mild to mo derate colonic fecal prominence at this level. A few distal colonic diverticula remain present. No CT evidence for acute diverticulitis currently. UTERUS/ADNEXA: Uterus surgically absent or atrophic in appearance. LYMPH NODES: No greater than 1cm abdominal or pelvic lymph nodes are appreciated. OSSEOUS STRUCTURES: Transitional type vertebra lumbosacral junction is sacralized on the left. OTHER: No significant additional abnormality is seen. IMPRESSION: Interval partial colectomy and bowel anastomosis. Few residual diverticula. No CT evidenc e for acute diverticulitis. Mild distal colonic fecal stasis. No bowel obstruction. No acute findings are evident.
== END | disposition home or self-care (01) ==
LOC: RADCTMAIN 11:07
PROVIDERS: ATTEND Surgery Plastic and Reconstructive Surgery
DX: K57.32 Diverticulitis of large intestine without perforation or abscess without bleeding (principal); K59.00 Constipation, unspecified; Z90.49 Acquired absence of other specified parts of digestive tract
CPT/HCPCS: 74177; Q9967

== ENCOUNTER → 2022-08-11 | Outpatient (CLI) | payer OTHER ==
--- NOTE | 2022-08-11 15:56 | NM ---
EXAMINATION TYPE: NM bone scan whole body DATE OF EXAM: 08/11/2022 2:32 PM CLINICAL INDICATION:Female, 52 years old with history of M19.90; COMPARISON: 03/09/2022. TECHNIQUE: Intravenous administration 21.7 mCi Tc 99m MDP followed by multiple scintigraphic images o f the appendicular and axial skeleton. Images acquired 3 hours post injection. FINDINGS: No abnormal uptake is identified within the appendicular or axial skeleton to suggest metastatic dise ase. There is increased uptake within the acromioclavicular joints consistent with degenerative changes. N o other photopenic areas or areas of increased activity are identified. Mild uptake within the medial aspect of the left knee Physiologic radiotracer activity is demonstrated in the kidneys and bladder. IMPRESSION: Degeneration changes within the acromioclavicular joints and medial aspect of the left knee. Consider MRI left knee for further evaluation.
== END | disposition home or self-care (01) ==
LOC: RADNMMAIN 10:15
PROVIDERS: ATTEND Family Medicine
DX: M17.0 Bilateral primary osteoarthritis of knee (principal); M19.011 Primary osteoarthritis, right shoulder
CPT/HCPCS: 78306; A9503

== ENCOUNTER → 2022-08-27 | Day surgery (SDC) | payer OTHER ==
[~2022-08-27] MED LIST changes: -DEXAMETHASONE SOD PHOSPHATE 10 MG/ML 1 ML VIAL IV ONE; -HEPARIN SODIUM,PORCINE 5,000 UNIT/ML 1 ML VIAL SQ ONE; -HYDROmorphone 0.5 MG/0.5 ML SYRINGE IVP PRN; -LIDOCAINE 1% 20 ML VIAL (10MG/ML) FOR IV START INTRADERMA PRN; +MIDAZOLAM 2 MG/2 ML VIAL IV ONE; -MIDAZOLAM 2 MG/2 ML VIAL IV PRN; -ONDANSETRON 4 MG/2 ML VIAL IVP ONE; -SCOPOLAMINE 1.5MG/72HR PATCH TRANSDERM ONE; +SODIUM CHLORIDE 0.9% 500 ML 500 ML IV ONE; +fentaNYL (PF) 50 MCG/1 ML VIAL IV ONE; +fentaNYL (PF) 50 MCG/ML 2 ML AMP ONE; -metroNIDAZOLE-NS PMX 500 MG in SALINE 1 100ML.BAG IVPB ONE
[2022-08-27 09:42] VITALS: RESP 16; TEMP 98.3
[2022-08-27] MEDS: BENZOCAINE SPRAY 1 CAN TOPICAL ONE ×2 (10:02→10:10)
--- NOTE | 2022-08-27 11:07 | ECHOS ---
STRESS ECHOCARDIOGRAM INDICATIONS: CVA. PROCEDURE NOTE: After obtaining informed consent, transesophageal echocardiogram was performed in left lateral position using an Omniplane probe. Local and IV sedation were obtained using Xylocaine spray, Versed and fentanyl. The patient tolerated the procedure well without any obvious immediate complications. FINDINGS: 1. There is no intracardiac thrombus within the left atrial appendage, left atrium, right atrium, right ventricle, left ventricle. 2. Left ventricle has normal size and systolic function. 3. Mitral valve is anatomically normal. There is mild mitral regurgitation noted. Tricuspid valve shows mild tricuspid regurgitation. Aortic valve is a 3-leaflet valve. There is no evidence of aortic stenosis or regurgitation. 4. Interatrial septum: There is no evidence of [id number] shunt by color-flow Doppler or sejhg-yj-dakv shunt by agitated saline contrast study. 5. Aorta is free of significant atherosclerotic changes. CONCLUSIONS: No intracardiac source of thromboembolic CVA. MMODL / IJN: [id number] /
[2022-08-27 11:28] VITALS: BP 120/77; PULSE 82
== END ==
LOC: CATHCVL 09:16
PROVIDERS: ATTEND Internal Medicine Cardiovascular Disease
DX: I63.9 Cerebral infarction, unspecified (principal); I08.1 Rheumatic disorders of both mitral and tricuspid valves; F17.210 Nicotine dependence, cigarettes, uncomplicated; Z79.82 Long term (current) use of aspirin; Z79.899 Other long term (current) drug therapy
CPT/HCPCS: 93312; 93325; J2250; J3010; 93320

== ENCOUNTER → 2023-07-27 | Day surgery (SDC) | payer BC, OTHER ==
[2023-07-25 13:06] VITALS: BMI 25.6
[~2023-07-27] MED LIST changes: -MIDAZOLAM 2 MG/2 ML VIAL IV ONE; +PROPOFOL 10 MG/ML 20 ML VIAL IV ONE; -SODIUM CHLORIDE 0.9% 500 ML 500 ML IV ONE; -fentaNYL (PF) 50 MCG/1 ML VIAL IV ONE; -fentaNYL (PF) 50 MCG/ML 2 ML AMP ONE
--- NOTE | 2023-07-27 07:34 | P.GSHP ---
History of Present Illness H&P Date: 07/27/23 CHIEF COMPLAINT: Colon screen HISTORY OF PRESENT ILLNESS: The patient is a 53-year-old female who presents for colon screen. Lower endoscopy was offered for further evaluation and management. PAST MEDICAL HISTORY: Please see list. PAST SURGICAL HISTORY: Please see list. MEDICATIONS: Please see list. ALLERGIES: Please see list. SOCIAL HISTORY: No illicit drug use FAMILY HISTORY: No reports of Crohn disease or ulcerative colitis. REVIEW OF ORGAN SYSTEMS: CONSTITUTIONAL: No reports of fevers or chills. PHYSICAL EXAM: VITAL SIGNS: Stable GENERAL: Well-developed pleasant in no acute distress. HEENT: No scleral icterus. Extraocular movements grossly intact. Moist buccal mucosa. NECK: Supple without lymphadenopathy. CHEST: Unlabored respirations. Equal bilateral excursions. CARDIOVASCULAR: Regular rate and rhythm. Distal 2+ pulses. ABDOMEN: Soft, nontender, nondistended. MUSCULOSKELETAL: No clubbing, cyanosis, or edema. ASSESSMENT: 1. Colon screen. PLAN: 1. Recommend proceeding with a lower endoscopy Past Medical History Past Medical History: COPD, CVA/TIA, GERD/Reflux, Hyperlipidemia, Hypertension Additional Past Medical History / Comment(s): diverticulitis, hx shingles, seasonal allergies. pt states she aspirated a vitamin C and then coughed it up ( about a month ago) but feels different since, mild wheezing at times. pt encouraged to let her Dr know. Neurologist sent pt to Dr Mercer. pt states she was told she had four small strokes in the past. "They can't determine when I had a stroke." "An area on my upper lip gets irritated." History of Any Multi-Drug Resistant Organisms: None Reported Past Surgical History: Bowel Resection, Breast Surgery, Section, Cholecystectomy, Hysterectomy, Tonsillectomy Additional Past Surgical History / Comment(s): breast augmentation, lipoma removed from back of head, exploratory laparotomy."Part of colon removed 5 years ago." "I've had pain since. Past Anesthesia/Blood Transfusion Reactions: Postoperative Nausea & Vomiting (PONV) Additional Past Anesthesia/Blood Transfusion Reaction / Comment(s): n/v when younger. No hx of blood transfusion. Smoking Status: Current every day smoker - Past Family History Mother Family Medical History: Diabetes Mellitus, Deep Vein Thrombosis (DVT) Additional Family Medical History / Comment(s): Mother is alive at age 72 with history of diabetes. Father Family Medical History: Cancer Additional Family Medical History / Comment(s): Father at age 46 from cirrhosis of the liver. Cancer in eye. Patient has 1 sister with no major medical problems and one daughter with no major medical problems. Medications and Allergies Home Medications Medication Instructions Recorded Confirmed Type Aspirin EC [Ecotrin Low Dose] 81 mg PO DAILY 08/25/22 07/25/23 History Atorvastatin [Lipitor] 80 mg PO HS 08/25/22 07/25/23 History Cetirizine HCl 10 mg PO HS PRN 08/25/22 07/25/23 History Metoprolol Tartrate 25 mg PO HS 08/25/22 07/25/23 History Mupirocin 2% Oint [Bactroban 2% 1 applic TOPICAL BID PRN 08/25/22 07/25/23 History Oint] Acetaminophen Tab [Tylenol Tab] 500 mg PO Q4H PRN 07/25/23 07/25/23 History Loratadine [Claritin] 10 mg PO HS PRN 07/25/23 07/25/23 History [place] Gummies (Unknown Dose) 3 dose PO QAM 07/25/23 History traZODone HCL [Desyrel] 100 mg PO HS 07/25/23 07/25/23 History Allergies Allergy/AdvReac Type Severity Reaction Status Date / Time No Known Allergies Allergy Verified 07/25/23 12:36
[2023-07-27] MEDS: LACTATED RINGERS 1,000 ML IV SCH (10:05)
[2023-07-27] MEDS: LIDOCAINE 1% (10MG/ML) FOR IV START INTRADERMA PRN (10:05)
[2023-07-27 10:43] VITALS: RESP 16; TEMP 97.9
--- NOTE | 2023-07-27 11:12 | P.PCN ---
Date of Procedure: 07/27/23 Description of Procedure: PREOPERATIVE DIAGNOSIS: Diverticulitis Change in bowel habits POSTOPERATIVE DIAGNOSIS: Chronic constipation Diverticulosis, scattered. OPERATION: Colonoscopy to the cecum, ileocecal valve and appendiceal orifice. SURGEON: Lily Greco MD. ANESTHESIA: MAC. INDICATIONS: The patient is a 53-year-old female who presents for change in bowel habits and diverticulitis with abdominal pain. Benefits and risks were described and informed consent was obtained. DESCRIPTION OF PROCEDURE: The patient had undergone Sutab prep. The patient had been brought into the operating room and laid in the left lateral decubitus position. After adequate intravenous sedation, the rectum was examined with 2% lidocaine jelly. External hemorrhoids were encountered. The rectal tone was within normal limits. No lesions were palpated in the rectal vault. An Olympus colonoscope was advanced until the cecum, ileocecal valve and appendiceal orifice were clearly viewed. The prep was poor to fair. Scattered diverticulosis was encountered. No large colonic polyps were found. No evidence of focal colitis was found. Retroflexion of the scope demonstrated grade 1 internal hemorrhoids without active bleeding or inflammation. The colon was desufflated. The patient had tolerated the procedure well. Withdrawal time was over 6 minutes. FINDINGS: Aronchick preparation quality scale 3+ (1-5) Internal hemorrhoids, grade 2 External prolapsed hemorrhoids, grade 2 No arteriovenous malformations. No adenomatous polyps. No focal colitis. RECOMMENDATIONS: Lower endoscopy in 5 years, 2028 Fiber diet 25 to 30 g daily advised Plan - Discharge Summary Discharge Rx Participant: No New Discharge Prescriptions: Continue Mupirocin 2% Oint [Bactroban 2% Oint] 1 applic TOPICAL BID PRN PRN Reason: Skin Irritation Cetirizine HCl 10 mg PO HS PRN PRN Reason: Allergy Symptoms Metoprolol Tartrate 25 mg PO HS Loratadine [Claritin] 10 mg PO HS PRN PRN Reason: allergies Aspirin EC [Ecotrin Low Dose] 81 mg PO DAILY Atorvastatin [Lipitor] 80 mg PO HS Acetaminophen Tab [Tylenol] 500 mg PO Q4H PRN PRN Reason: Pain traZODone HCL [Desyrel] 100 mg PO HS [employer] [employer]umm[employer] (Unknown Dose) 3 dose PO QAM Discharge Medication List Aspirin EC [Ecotrin Low Dose] 81 mg PO DAILY 08/25/22 [History] Atorvastatin [Lipitor] 80 mg PO HS 08/25/22 [History] Cetirizine HCl 10 mg PO HS PRN 08/25/22 [History] Metoprolol Tartrate 25 mg PO HS 08/25/22 [History] Mupirocin 2% Oint [Bactroban 2% Oint] 1 applic TOPICAL BID PRN 08/25/22 [History] Acetaminophen Tab [Tylenol] 500 mg PO Q4H PRN 07/25/23 [History] Loratadine [Claritin] 10 mg PO HS PRN 07/25/23 [History] [employer] (Unknown Dose) 3 dose PO QAM 07/25/23 [History] traZODone HCL [Desyrel] 100 mg PO HS 07/25/23 [History] Follow up Appointment(s)/Referral(s): Lily Greco MD [STAFF PHYSICIAN] - 08/30/23 4:30 pm Patient Instructions/Handouts: *Surgery [facility] - (Anesthesia) Discharge Instructions Outpatient Surgery, Colonoscopy (DC), Diverticulosis (GEN), Diverticulosis Diet (GEN) Activity/Diet/Wound Care/Special Instructions: Repeat colonoscopy 5 years, 2028 Discharge Disposition: HOME SELF-CARE
[2023-07-27 11:36] VITALS: BP 132/76; PULSE 77
== END | disposition home or self-care (01) ==
LOC: ORWHC2ENDO 09:34
PROVIDERS: ATTEND Surgery Plastic and Reconstructive Surgery
DX: K64.1 Second degree hemorrhoids (principal); K64.4 Residual hemorrhoidal skin tags; J44.9 Chronic obstructive pulmonary disease, unspecified; I10 Essential (primary) hypertension; K21.9 Gastro-esophageal reflux disease without esophagitis; E78.5 Hyperlipidemia, unspecified; F17.200 Nicotine dependence, unspecified, uncomplicated; Z79.82 Long term (current) use of aspirin; Z86.73 Personal history of transient ischemic attack (TIA), and cerebral infarction without residual deficits; Z90.49 Acquired absence of other specified parts of digestive tract; Z79.899 Other long term (current) drug therapy
CPT/HCPCS: 45378; J2704

== ENCOUNTER → 2024-03-02 | Outpatient (CLI) | payer BC ==
--- NOTE | 2024-03-11 09:02 | MR ---
EXAMINATION TYPE: MR elbow RT wo/w con DATE OF EXAM: 03/02/2024 5:51 PM COMPARISON: None CLINICAL INDICATION: Female, 53 years old with history of M25.521 PAIN IN RIGHT ELBOW M77.11 R22.31; PHH, right antecubital mass, marker placed. TECHNIQUE: Multiplanar multi-sequence imaging was performed of the elbow joint. No gadolinium given. FINDINGS: There is a mass that correlates with the palpable marker measuring 19 x 13 x 30 mm which is high T1 h igh T2 signal and demonstrates fat sat on Fat saturation sequences. Ligaments and tendons: The common extensor tendon has intermediate T2 signal intensity with in it. T he tendon remains intact. The lateral ulnar collateral ligament, annular ligament, and lateral colla teral ligament are intact. The common flexor tendon, biceps tendon, brachialis tendon, and triceps t endon are within normal limits. Osseous structures: High PD focus in the subchondral location of the capitellum. High T2 signal inten sity is present involving the lateral epicondyles of the humerus. The remaining bone marrow signal i ntensity is unremarkable. A small amount of joint fluid is noted. IMPRESSION: 1. 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 2. Tendinosis of the common extensor origin on the lateral upper condyle underlying chronic partial tear not excluded. 3. No evidence of ligament tear. [facility], , 03/11/2024 8:59 AM
== END | disposition home or self-care (01) ==
LOC: RADMRIMAIN 16:31
PROVIDERS: ATTEND Orthopaedic Surgery
DX: M25.521 Pain in right elbow (principal); M77.11 Lateral epicondylitis, right elbow; R22.31 Localized swelling, mass and lump, right upper limb
CPT/HCPCS: 73223; A9585